=== PATIENT | male | born 1975 | race African-American/Black ===

== ENCOUNTER 2020-07-21 23:54 | Emergency (ER) | payer OTHER, SELFPAY ==
[2020-07-21 23:58] VITALS: BP 137/86; PULSE 87; RESP 18; TEMP 37.2; O2SAT 96; BMI 32.8
--- NOTE | 2020-07-22 | CT_ITS ---
EXAMINATION: CT SOFT TISSUE NECK WITH CONTRAST CLINICAL INFORMATION: Pain. Tongue swelling. COMPARISON: None TECHNIQUE: Following the intravenous administration of 60 mL of Omnipaque 350 intravenous contrast, helical imaging was performed in the axial plane with generation of coronal and sagittal reformatted images. This CT examination was performed using dose optimization techniques as appropriate, variously including the following: *Automated exposure control *Adjustment of mA and/or kV according to patient size (this includes techniques or standardized protocols for targeted exams where dose is matched to indication/reason for exam; i.e. extremities or head) *Use of iterative reconstruction technique DLP: 808 mGy-cm FINDINGS: There are scattered nonpathologically enlarged cervical lymph nodes. The parotid glands are homogeneous in attenuation. The submandibular glands are normal. No contour abnormality or pathologic enhancement is seen within the oral cavity or pharyngeal mucosal space. The laryngeal structures are normal. The parapharyngeal fat is preserved. The carotid sheath vasculature opacify normally. No extra mucosal soft tissue mass or fluid collection is seen. No retropharyngeal fluid collection is seen. The thyroid gland is normal. The superior mediastinum is unremarkable. The lung apices are clear. The mastoid air cells and visualized portions of the paranasal sinuses are well-aerated. The temporomandibular joints are normal. No periapical disease is identified. No osseous abnormalities are seen. The patient is status post right frontal craniotomy. An aneurysm clip is identified. No acute vascular abnormalities are identified. The imaged portions of the brain parenchyma are otherwise unremarkable. IMPRESSION: No acute abnormalities demonstrable.
--- NOTE | 2020-07-22 00:59 | ED_ITS ---
HPI - General Adult General Chief complaint: General Medical Stated complaint: E Time Seen by Provider: 07/22/20 00:59 History of Present Illness HPI narrative: this is a 45-year-old male who presents with progressively worsening left-sided pain on swallowing with noted pain along the left lateral aspect of the tongue and is not associated with fevers, chills, ear pain, headache. In addition, there is no associated medication side effect, dental caries. Patient denies any inability to adequately breathe and states that the only issue with swallowing is the pain. Related Data Previous Rx's Medication Instructions Recorded amoxicillin-pot clavulanate 1 tab PO Q12H 10 Days #20 tab 07/22/20 [Augmentin] Allergies Allergy/AdvReac Type Severity Reaction Status Date / Time No Known Allergies Allergy Verified 07/21/20 23:58 [No Known Allergies*] Review of Systems Review of Systems: Pertinent positives and negatives as stated in the HPI and 10 point review of systems is otherwise negative PMFSH Past Medical History Source: nursing notes reviewed Medical History No known health problems Social History Social History Alcohol intake: unknown Smoking Status: Former smoker Smoked in Last 30 Days: No Use of substances other than those prescribed or required for medical reasons: No Advance Directives: No Physical Exam Vital Signs and I&O and Narrative: Vital Signs and I&O: Vital Signs Temp 99.0 F 07/21/20 23:58 Pulse 87 07/21/20 23:58 Resp 18 07/22/20 02:00 BP 137/87 07/22/20 01:09 Pulse Ox 96 07/22/20 01:09 Intake & Output 07/21/20 07/21/20 07/22/20 06:59 18:59 06:59 Intake Total 1000 / 1000 Balance 1000 / 1000 Weight 122.47 kg Intake: Intake, IV Amoun t 1000 / 1000 0.9 % Sodium C hloride 1,000 ml 1000 / 1000 @ 999 mls/hr I VCONT .Q1H1M RAQUEL Rx#:[id number] Body Mass Index 32.8 VITAL SIGNS: Reviewed. GENERAL: Well developed, well nourished, in no acute distress. HEAD: Normocephalic/atraumatic, Posterior oropharynx was without edema, erythema or exudate. EYES: PERRLA, Pupils <>, EOMI intact without pain, no nystagmus/pallor/icterus noted EARS: Ext canals without abnormality, there is noted purulence to the left middle ear without tragus or pinnae pain. NOSE: Nares patent bilateral OROPHARYNX: no oral lesions noted, posterior pharynx clear and non-erythematous without noted tonsillar enlargement/erythema/exudates , but the tongue is noticeably larger on the left lateral aspect with corresponding edema/swelling noted to the left floor of the mouth and no noted dental caries. There is a whitish area noted to the lateral tongue that appears to be associated with the skin and not a growth. NECK: Supple, no adenopathy LUNGS: Normal breath sounds. No adventitious sounds or accessory muscle use. SpO2<> CARDIOVASCULAR: Regular rate and rhythm without noted murmurs, no JVD or lower extremity edema. ABDOMEN: Soft, non-tender, non-distended with bowel sounds. No rigidity. No guarding. No palpable masses or hernias noted MUSCULOSKELETAL: No tenderness, deformities, or effusions noted on gross inspection Patient has noted bilateral distal upper extremity muscle wasting of the hands and extends proximally to the forearms that he states has been ongoing. EXTREMITIES: No cyanosis, clubbing or edema. SKIN: Inspection of the skin reveals no rashes, ulcerations, jaundice, pallor, or petechiae. NEUROLOGIC: Alert and oriented x 3. Strength and sensation to light touch were grossly intact x 4. Course Course Hospital Course: This is a 45-year-old male with history and clinical presentation consistent with possible pharyngeal abscess versus esophagitis versus herpes zoster but doubt Samuel's and not consistent with an angioedema. Review of all laboratory and imaging investigations does show a small leukocytosis, but CT of the soft tissue in the neck with IV contrast is negative for any evidence of abscess or clinically significant adenopathy. Given the fact that there is no vesicular formation consistent with a herpes zoster and no evidence within the oral cavity of thrush to suggest the possibility esophag eal candidiasis. These results and findings were discussed with the patient at bedside and he understands that he will be discharged with a course of antibiotics and strongly recommended to follow-up with his primary care provider by calling the office in the morning to set up an appointment. Medical Decision Making Lab Data Result diagrams: 07/22/20 01:25 07/22/20 02:00 Labs: Lab Results 07/22/20 07/22/20 Range/Units 01:25 02:00 WBC 11.6 H (4.8-10.8) X10*3/uL RBC 5.25 (4.60-5.80) X10*6/uL Hgb 14.9 (14.0-18.0) g/dl Hct 44.9 (42-52) % MCV 85.5 (80-98) fL MCH 28.4 (27.0-33.0) pg MCHC 33.2 (31.0-36.0) g/dl RDW 13.0 (11.0-16.0) % Plt Count 249 (160-400) X10*3/uL MPV 9.8 (9.4-12.4) fL Immature Gran % (Auto) 0.3 (0.0-0.4) % Neut % (Auto) 68.2 (45-73) % Lymph % (Auto) 21.6 (20-40) % Archer % (Auto) 7.4 (2-11) % Eos % (Auto) 2.0 (0-4) % Baso % (Auto) 0.5 (0-2) % Neut # (Auto) 7.9 (2.0-8.3) X10*3/uL Lymph # (Auto) 2.5 (1.2-4.9) X10*3/uL Archer # (Auto) 0.9 (0.1-1.2) X10*3/uL Eos # (Auto) 0.2 (0.0-0.4) X10*3/uL Baso # (Auto) 0.1 (0.0-0.2) X10*3/uL Abs Immat Gran (auto) 0.03 (0.00-0.03) X10*3/uL Absolute Nucleated RBC 0.000 (0.0-0.012) X10*3/uL Nucleated RBC % (auto) 0.0 (0.0-0.2) /100WBC Sodium 138 (135-145) mmol/L Potassium 3.6 (3.3-5.1) mmol/l Chloride 106 (96-108) mmol/L Carbon Dioxide 22 (22-29) mmol/L Anion Gap 14 (12-20) BUN 17 H (9-16) mg/dL Creatinine 1.10 (0.5-1.4) mg/dL Estim Creat Clear Calc 118.6 Estimated GFR > 60 Random Glucose 104 (60-115) mg/dL Calcium 8.8 (8.4-10.2) mg/dL Total Bilirubin 0.7 (0.0-1.0) mg/dL AST 28 (5-37) U/L ALT 36 (0-40) U/L Alkaline Phosphatase 61 (39-117) U/L Total Protein 6.6 (6.5-8.0) g/dL Albumin 4.1 (3.5-5.0) g/dL Discharge Plan Discharge Clinical Impression: Acute otitis media of left ear with perforated tympanic membrane Patient Disposition: Home, Self-Care Instructions: Ear Infection (ED) Additional Instructions: Resume any home medications that you have been prescribed. Follow-up with your primary care provider by calling the office tomorrow morning to set up an appointment. The patient and/or family acknowledge understanding of results (as applicable), diagnosis, treatment plan, need for follow up, and symptoms that should prompt a return to the emergency room. Prescriptions: New amoxicillin-pot clavulanate [Augmentin] 875-125 mg tablet 1 tab PO Q12H 10 Days Qty: 20 RF: 0 Referrals: Kory Phan MD [Primary Care Provider] - 1 day ( follow-up for current infection)
[2020-07-22 01:09] VITALS: BP 137/87; RESP 18; O2SAT 96
[2020-07-22] MEDS: 0.9 % Sodium Chloride 1,000 ML 999 ML IVCONT (01:27)
[2020-07-22] MEDS: Ketorolac Tromethamine 15 MG/ML VIAL IV (01:27)
[2020-07-22 01:32] LABS: MANUAL DIFF FLAG NO
[2020-07-22 01:37] LABS: Basophils Absolute Auto 0.1 X10*3/uL (0.0-0.2); Basophils Percent Auto 0.5 % (0-2); Eosinophils Absolute Auto 0.2 X10*3/uL (0.0-0.4); Hematocrit 44.9 % (42-52); Hemoglobin 14.9 g/dl (14.0-18.0); Imm Gran Abs Auto 0.03 X10*3/uL (0.00-0.03); Imm Gran Pct Auto 0.3 % (0.0-0.4); Lymphocytes Absolute Auto 2.5 X10*3/uL (1.2-4.9); Lymphocytes Percent Auto 21.6 % (20-40); Mean Corpuscular HGB Conc 33.2 g/dl (31.0-36.0); Mean Corpuscular Hemoglobin 28.4 pg (27.0-33.0); Mean Corpuscular Volume 85.5 fL (80-98); Mean Platelet Volume 9.8 fL (9.4-12.4); Monocytes Absolute Auto 0.9 X10*3/uL (0.1-1.2); Monocytes Percent Auto 7.4 % (2-11); Neutrophils Absolute Auto 7.9 X10*3/uL (2.0-8.3); Neutrophils Percent Auto 68.2 % (45-73); Platelet Count 249 X10*3/uL (160-400); Red Blood Count 5.25 X10*6/uL (4.60-5.80); White Blood Count 11.6 X10*3/uL (4.8-10.8)
[2020-07-22 02:00] VITALS: RESP 18
[2020-07-22 02:30] LABS: Alanine Aminotransferase 36 U/L (0-40); Albumin Level 4.1 g/dL (3.5-5.0); Alkaline Phosphatase 61 U/L (39-117); Anion Gap 14 (12-20); Aspartate Amino Transferase 28 U/L (5-37); Bilirubin Total 0.7 mg/dL (0.0-1.0); Blood Urea Nitrogen 17 mg/dL (9-16); Calcium 8.8 mg/dL (8.4-10.2); Carbon Dioxide 22 mmol/L (22-29); Chloride 106 mmol/L (96-108); Creatinine Clr Calc Pharmacy 118.6; Estimated Glomerular Filt Rate > 60; Glucose Random 104 mg/dL (60-115); Potassium 3.6 mmol/l (3.3-5.1); Sodium 138 mmol/L (135-145); Total Protein 6.6 g/dL (6.5-8.0)
[2020-07-22] MEDS: iohexoL 350 MG/ML 100 ML INFUS..BTL 60 ML IV (03:22)
[2020-07-22 04:00] VITALS: BP 121/75; PULSE 70; RESP 18; O2SAT 100
[2020-07-22] MEDS: Amoxicillin/Potassium Clav 875 MG TABLET PO (04:33)
== END 2020-07-22 04:39 | disposition home or self-care (01) ==
PROVIDERS: Emergency Provider Student in an Organized Health Care Education/Training Program; PCP Internal Medicine
DX: H66.012 Acute suppurative otitis media with spontaneous rupture of ear drum, left ear (principal); H92.02 Otalgia, left ear; Z87.891 Personal history of nicotine dependence
CPT/HCPCS: 36415; 70491; 80053; 85025; 96361; 96374; 99284